=== PATIENT | male | born 1990 | race Caucasian/White ===

== ENCOUNTER 2018-01-25 08:34 | Emergency (ER) | payer SELFPAY ==
[~2018-01-25] VITALS: Ht 175.3 cm; Wt 140.9 kg
[2018-01-25 08:59] VITALS: Ht 175.3 cm; Wt 140.9 kg
[2018-01-25] MEDS ORDERED: DOXYCYCLINE HY100 M2 PO (09:09)
[2018-01-25 10:17] VITALS: BP 118/77
== END 2018-01-25 11:20 | disposition home or self-care (01) ==
LOC: D.ER 08:34
DX: J06.9 Acute upper respiratory infection, unspecified (principal); R09.89 Other specified symptoms and signs involving the circulatory and respiratory systems

== ENCOUNTER 2019-04-20 12:54 | Emergency (ER) | payer OTHER ==
[~2019-04-20] VITALS: Ht 175.3 cm; Wt 127.3 kg
[~2019-04-20 12:54] MED LIST: DOXYCYCLINE HY100 M2 PO
[2019-04-20 13:01] VITALS: Ht 175.3 cm; Wt 127.3 kg
[2019-04-20] MEDS ORDERED: VOLTAREN75 MG PO (14:25)
[2019-04-20 15:04] VITALS: BP 123/75
== END 2019-04-20 15:21 | disposition home or self-care (01) ==
LOC: D.ER 12:54
DX: M77.52 Other enthesopathy of left foot and ankle (principal)